=== PATIENT | male | born 1935 | race Caucasian/White ===

== ENCOUNTER 2018-09-11 09:54 | Day surgery (SDC) | payer MEDICARE, OTHER ==
[~2018-09-11 09:54] MED LIST: PROPOFOL 500 MG/50 ML EMU IV ONE
[2018-09-11 11:45] VITALS: TEMP 97.6
[2018-09-11 12:05] VITALS: PULSE 68; RESP 14; O2SAT 98
[2018-09-11 12:15] VITALS: BP 137/87
== END 2018-09-11 12:23 | disposition home or self-care (01) | DRG 951 ==
LOC: SURG 09:54
PROVIDERS: ATTEND Surgery
DX: Z12.11 Encounter for screening for malignant neoplasm of colon (principal); K57.32 Diverticulitis of large intestine without perforation or abscess without bleeding; Z80.0 Family history of malignant neoplasm of digestive organs; Z86.010 Personal history of colon polyps
CPT/HCPCS: J2704